=== PATIENT | female | born 1955 | race Caucasian/White ===

== ENCOUNTER 2021-03-02 16:50 | Emergency (ER) | payer OTHER ==
[~2021-03-02] VITALS: Ht 170.2 cm; Wt 108.9 kg
[2021-03-02 18:41] VITALS: BP 124/78
[2021-03-02] MEDS ORDERED: HYDROCODONE/ACETAMINOPHEN 5/325 MG TAB PO ONE (19:00)
[2021-03-02] MEDS ORDERED: CEPH500B PO (19:36)
== END 2021-03-02 19:50 | disposition home or self-care (01) ==
LOC: EDH 16:58
DX: S81.811A Laceration without foreign body, right lower leg, initial encounter (principal); S91.011A Laceration without foreign body, right ankle, initial encounter; I10 Essential (primary) hypertension; Z90.49 Acquired absence of other specified parts of digestive tract; K21.9 Gastro-esophageal reflux disease without esophagitis; W18.39XA Other fall on same level, initial encounter; Y93.89 Activity, other specified; Y92.89 Other specified places as the place of occurrence of the external cause; Y99.8 Other external cause status
CPT/HCPCS: 12002

== ENCOUNTER → 2024-09-29 | Outpatient (CLI) | payer OTHER ==
[~2024-09-29] MED LIST: CEPH500B PO
[2024-09-29] MEDS: REGADENOSON 0.4 MG/5 ML PF SYG IVP ONE (11:43)
--- NOTE | 2024-09-30 09:18 | HMCSR ---
APPROVED REPORT Height: 5 ft 7in Weight: 221 lbs TEST INDICATIONS Chest Pain The imaging protocol used to acquire images was Rest Tc-99m/stress Tc-99m 1 day Consent: The procedure was explained and understood by the patient. Informerd consent was witnessed Antoine Rivera RN First, low dose rest was performed then high dose stress. RESTING DATA: The resting ekg shows: NSR Rest SPECT myocardial perfusion imaging was performed in supine position 62 minutes following the int ravenous injection of 10.4 mCi of Tc-99 Sestamibi. Time of rest injection: 08:10: Date: 09/29/2024 Time of rest imagin:12: Date: 09/29/2024 PHARMACOLOGIC STRESS: Pharmacologic stress test was performed by injecting regadenoson 0.4 mg IV push followed by the intra venous injection of 34.6 mCi of Tc-99 Sestamibi. Time of stress injection: 09:56: Date: 09/29/2024 Time of stress imagin:12: Date: 09/29/2024 Heart Rate at time of stress injection: 79 bpm. Gated Stress SPECT was performed 76 minutes after stress injection. The images were gated to evaluate regional wall motion and calculate left ventricular ejection fracti on. STRESS DETAILS Reason for Termination: Infusion complete Stress Symptoms: Dyspnea Max HR Achieved: 110 bpm % of APMHR Achieved: 73 Max Blood Pressure: 155/95 mmHg Stress ECG: NSR Conclusion No ischemia No infarct LV ejection fraction 72% Normal variant apical cleft Normal LV wall motion Normal LV size at rest and stress No increased lung uptake
== END | disposition home or self-care (01) ==
LOC: SHCH 07:41
PROVIDERS: ATTEND Internal Medicine Cardiovascular Disease
DX: R07.9 Chest pain, unspecified (principal)
CPT/HCPCS: 78452; 93017; J2785; A9500 ×2